=== PATIENT | female | born 1960 | race Caucasian/White ===

== ENCOUNTER 2020-11-01 20:02 | Emergency (ER) | payer OTHER, SELFPAY ==
[2020-11-01] MEDS ORDERED: MORPHINE 4 MG/ML SYR ONE (23:13)
[2020-11-01] MEDS ORDERED: ONDANSETRON 4 MG/2 ML VIAL ONE (23:13)
[2020-11-01 23:16] LABS: Hematocrit 39.8 % (36.0-45.0); Lymphocytes % 5.3 % (15.3-44.8); MPV 9.1 fL (7.6-11.3)
[2020-11-01 23:17] LABS: Absolute Lymphocytes (CBC) 0.4 K/uL (0.7-4.9); Basophils % 0.3 % (0-1.3)
[2020-11-01 23:34] LABS: Albumin 3.4 g/dL (3.4-5.0); Bilirubin Direct 0.3 mg/dL (0-0.2); Potassium 4.2 mmol/L (3.5-5.1); Protein, Total 7.4 g/dL (6.4-8.2)
[2020-11-01 23:46] LABS: Urine Blood 3+ (Negative); Urine Glucose 2+ (Negative); Urine Protein 2+ (Negative); Urine Specific Gravity >=1.030 (1.005-1.030); Urine pH 5.5 (5.0-7.0)
[2020-11-02 00:11] LABS: Urine Bacteria >50 /HPF (<20); Urine Mucus 2+ /HPF (NONE SEEN); Urine RBC TNTC /HPF (NONE SEEN)
[2020-11-02] MEDS ORDERED: TAMSULOSIN 0.4 MG SR CAP ONE (00:36)
[2020-11-02] MEDS ORDERED: MAGNESIUM SULFATE 1 gm IVPB 1 GM/100 ML BAG IV ONE (00:37)
--- NOTE | 2020-11-02 01:18 | ER ---
Nurse's Notes [facility] Name: Jemima Ramsey Age: 60 yrs Sex: Female : 1960 Arrival Date: 11/01/2020 Time: 20:23 Bed 3 Private MD: Diagnosis: Urinary tract infection, site not specified;Hydronephrosis with renal and ureteral calculous obstruction Presentation: 11/01 20:35 Chief complaint: Patient states: L flank pain, N/V/D, dysuria for 2 days. Toradol and ll1 tylenol #3 helped yesterday. Coronavirus screen: Client denies travel out of the [place] in the last 14 days. diarrhea, fever, nausea, vomiting. Client presents with at least one sign or symptom that may indicate coronavirus-19. Standard/surgical mask placed on the client. Ebola Screen: Patient denies travel to an Ebola-affected area in the 21 days before illness onset. Initial Sepsis Screen: Does the patient meet any 2 criteria? HR > 90 bpm. No. Patient's initial sepsis screen is negative. Does the patient have a suspected source of infection? Yes: Dysuria/Frequency/Urgency/UTI. Risk Assessment: Do you want to hurt yourself or someone else? Patient reports no desire to harm self or others. Onset of symptoms was October 30, 2020. 20:35 Method Of Arrival: Wheelchair ll1 20:35 Acuity: FEDER[place] 3 ll1 Historical: - Allergies: 20:39 No Known Allergies; ll1 - PMHx: 20:39 Kidney stones; Diabetes - NIDDM; High Cholesterol; ll1 - PSHx: 20:39 None; ll1 - Immunization history:: Flu vaccine is not up to date. - Social history:: Smoking status: Patient denies any tobacco usage or history of. - Family history:: not pertinent. - Hospitalizations: : No recent hospitalization is reported. Screenin:45 Abuse screen: Denies threats or abuse. Nutritional screening: No deficits noted. jb4 Tuberculosis screening: No symptoms or risk factors identified. Fall Risk None identified. Assessment: 22:45 General: Appears in no apparent distress. uncomfortable, Behavior is calm, cooperative, jb4 appropriate for age. Pain: Complains of pain in left low back Pain does not radiate. Pain currently is 3 out of 10 on a pain scale. Neuro: Level of Consciousness is awake, alert, obeys commands, Oriented to person, place, time, situation. Cardiovascular: Patient's skin is warm and dry. Respiratory: Airway is patent Respiratory effort is even, unlabored, Respiratory pattern is regular, symmetrical. GI: Abdomen is round non-distended. : Reports burning with urination, pain in right in lower back with urination. EENT: No signs and/or symptoms were reported regarding the EENT system. Derm: Skin is intact, Skin is pink, warm \\T\\ dry. Musculoskeletal: Circulation, motion, and sensation intact. Range of motion:. 11/02 00:00 Reassessment: Patient appears in no apparent distress at this time. Patient and/or jb4 family updated on plan of care and expected duration. Pain level reassessed. Patient is alert, oriented x 3, equal unlabored respirations, skin warm/dry/pink. Patient states feeling better. 01:00 Reassessment: Patient appears in no apparent distress at this time. Patient and/or jb4 family updated on plan of care and expected duration. Pain level reassessed. Patient is alert, oriented x 3, equal unlabored respirations, skin warm/dry/pink. 02:00 Reassessment: Patient appears in no apparent distress at this time. Patient and/or jb4 family updated on plan of care and expected duration. Pain level reassessed. Patient is alert, oriented x 3, equal unlabored respirations, skin warm/dry/pink. Patient states feeling better. 03:00 Reassessment: Patient appears in no apparent distress at this time. Patient and/or jb4 family updated on plan of care and expected duration. Pain level reassessed. Patient is alert, oriented x 3, equal unlabored respirations, skin warm/dry/pink. 03:30 Reassessment: report given to RAFAEL Anguiano of Room [facility] of [facility]. mg2 Vital Signs: 11/01 20:35 BP 142 / 66; Pulse 100; Resp 18; Temp 98.8; Pulse Ox 98% ; Weight 70.31 kg; Height 5 ll1 ft. 3 in. (160.02 cm); Pain 08/29; 11/02 00:15 BP 143 / 67; Pulse 90; Resp 16; Pulse Ox 98% on R/A; jb4 01:00 BP 146 / 66; Pulse 88; Resp 16; Pulse Ox 98% on R/A; jb4 02:00 BP 142 / 74; Pulse 98; Resp 18; Pulse Ox 98% on R/A; jb4 03:00 BP 126 / 69; Pulse 104; Resp 17; Pulse Ox 96% on R/A; jb4 04:00 BP 143 / 82; Pulse 80; Resp 18; Temp 98; Pulse Ox 100% on R/A; mg2 11/01 20:35 Body Mass Index 27.46 (70.31 kg, 160.02 cm) ll1 ED Course: 11/01 20:23 Patient arrived in ED. cf2 20:38 Triage completed. ll1 20:39 Arm band placed on. ll1 22:32 Tres Nicole MD is Attending Physician. rn 22:33 Jamison Martinez, RAFAEL is Primary Nurse. jb4 22:45 Patient has correct armband on for positive identification. Placed in gown. Bed in low jb4 position. Call light in reach. Side rails up X 1. Pulse ox on. NIBP on. 23:00 Initial lab(s) drawn, by me, sent to lab. Inserted saline lock: 18 gauge in right jb4 antecubital area, using aseptic technique. Blood collected. 11/02 01:16 initiated a transfer with Mary Beth Perez from [facility]. mw2 01:34 doc to doc with Dr. Bryan from [facility]. mw2 01:53 Mary Beth Perez called to check on the status of the patients' covid result. She stated "we [facility] can't give acceptance until we get the covid result". 02:[address] [facility] spoke to Mary Beth to update her on the patients' covid test.mw2 03:17 administrative approval given by Mary Beth Perez/ patient has been accepted to [address] bed 518/ Dr. Bryan has accepted the patient in transfer/ report to be called to [phone]. 03:30 No provider procedures requiring assistance completed. Patient transferred, IV remains jb4 in place. 10:12 CT Stone Protocol In Process Unspecified. EDMS Administered Medications: 11/01 23:06 Drug: Zofran (Ondansetron) 4 mg Route: IVP; Site: right antecubital; jb4 23:52 Follow up: Response: No adverse reaction mg2 11/02 00:15 Not Given (Patient Refused): morphine 4 mg IVP once; RASS on ADMIN: Combtv4, Very jb4 Agttd3, Agttd2, Rstlss1, AlertClm0, Drwsy-1, Lt Sdtn-2, Mod Sdtn-3, Dp Sdtn-4, UnArsble-5 00:27 Drug: Magnesium Sulfate 1 grams Route: IVPB; Infused Over: 1 hrs; Site: right jb4 antecubital; 01:27 Follow up: Response: No adverse reaction; IV Status: Completed infusion; IV Intake: jb4 100ml 00:27 Drug: Flomax 0.4 mg Route: PO; jb4 01:00 Follow up: Response: No adverse reaction jb4 01:23 Follow up: Response: No adverse reaction mg2 01:47 Drug: Phenergan 12.5 mg Route: IVP; Site: right antecubital; jb4 02:35 Follow up: Response: No adverse reaction mg2 01:50 Drug: Rocephin (cefTRIAXone) 1 grams Route: IV; Rate: calculated rate; Site: right jb4 antecubital; 01:53 Follow up: Response: No adverse reaction; IV Status: Completed infusion; IV Intake: 12hvpt5 02:36 Drug: Requip 0.25 mg Route: PO; mg2 03:29 Follow up: Response: No adverse reaction; Marked relief of symptoms jb4 04:02 Drug: Zofran (Ondansetron) 4 mg Route: IVP; Site: right antecubital; jb4 04:08 Follow up: Response: Medication administered at discharge. jb4 Intake: 01:27 IV: 100ml; Total: 100ml. jb4 01:53 IV: 10ml; Total: 110ml. jb4 Outcome: 01:17 ER care complete, transfer ordered by MD. zimmer 04:09 Transferred by ground EMS to other acute care facility: [facility]. Transfer mg2 form completed. 04:09 Condition: stable 04:09 Instructed on the need for transfer, Demonstrated understanding of instructions. 04:10 Patient left the ED. mg2 Addendum: 11/08/2020 01:05 Addendum: Culture Results: Positive urine culture. Bacteria is resistant to, has i w intermediate sensitivity, or is not tested against prescribed antibiotics. Report given to PRINCESS for further evaluation and then to project management professor for follow up with patient. Phone call Attempt #[address] [facility] , pt d/c. Signatures: Dispatcher [employer] Isabel Bruner, RN Tres Marrero MD MD rn Bryson, James, RN RN jb4 Reji Nazario 2 Yandel Lyons RN RN mg2 Frazier, Celesta 2 Omaira Monsalve RN RN ll1 Corrections: (The following items were deleted from the chart) 11/02 03:27 11/01 22:45 Pain: Complains of pain in right low back jb4 jb4
--- NOTE | 2020-11-02 01:18 | EDPHYS ---
Physician Documentation [facility] Name: Jemima Ramsey Age: 60 yrs Sex: Female : 1960 Arrival Date: 11/01/2020 Time: 20:23 Bed 3 Private MD: ED Physician Tres Nicole HPI: 11/01 23:27 This 60 yrs old Female presents to ER via Wheelchair with complaints of rn Nausea/Vomiting, Pain With Urination, Fever. 23:27 The patient complains of pain in the left mid back. The pain does not radiate. rn 23:27 Onset: The symptoms/episode began/occurred yesterday. Modifying factors: The symptoms rn are alleviated by nothing. the symptoms are aggravated by nothing. Associated signs and symptoms: Pertinent positives: fever, nausea, vomiting. Severity of pain: At its worst the pain was moderate in the emergency department the pain is unchanged. The patient has experienced similar episodes in the past. The patient has been recently seen by a physician:. Reports hx of kidney stones, seen 2 weeks ago with left sided stone at other ER, felt better, Returns today for left flank pain, dysuria, subjective fever, and nausea/vomiting. . Historical: - Allergies: 20:39 No Known Allergies; ll1 - PMHx: 20:39 Kidney stones; Diabetes - NIDDM; High Cholesterol; ll1 - PSHx: 20:39 None; ll1 - Immunization history:: Flu vaccine is not up to date. - Social history:: Smoking status: Patient denies any tobacco usage or history of. - Family history:: not pertinent. - Hospitalizations: : No recent hospitalization is reported. ROS: 23:27 Constitutional: Negative for fever, chills, and weight loss, Eyes: Negative for injury, rn pain, redness, and discharge, Neck: Negative for injury, pain, and swelling, Cardiovascular: Negative for chest pain, palpitations, and edema, Respiratory: Negative for shortness of breath, cough, wheezing, and pleuritic chest pain, Abdomen/GI: Negative for abdominal pain, and constipation, Back: + left flank pain : + dysuria MS/Extremity: Negative for injury and deformity, Skin: Negative for injury, rash, and discoloration, Neuro: Negative for headache, weakness, numbness, tingling, and seizure. Exam: 23:27 Constitutional: This is a well developed, well nourished patient who is awake, alert, rn and in no acute distress. Head/Face: Normocephalic, atraumatic. Cardiovascular: Regular rate and rhythm. No pulse deficits. Respiratory: No increased work of breathing, no retractions or nasal flaring. Abdomen/GI: soft, non-tender Skin: Warm, dry MS/ Extremity: Pulses equal, no cyanosis. Neuro: Awake and alert, GCS 15 Vital Signs: 20:35 BP 142 / 66; Pulse 100; Resp 18; Temp 98.8; Pulse Ox 98% ; Weight 70.31 kg; Height 5 ll1 ft. 3 in. (160.02 cm); Pain 08/29; 11/02 00:15 BP 143 / 67; Pulse 90; Resp 16; Pulse Ox 98% on R/A; jb4 01:00 BP 146 / 66; Pulse 88; Resp 16; Pulse Ox 98% on R/A; jb4 02:00 BP 142 / 74; Pulse 98; Resp 18; Pulse Ox 98% on R/A; jb4 03:00 BP 126 / 69; Pulse 104; Resp 17; Pulse Ox 96% on R/A; jb4 04:00 BP 143 / 82; Pulse 80; Resp 18; Temp 98; Pulse Ox 100% on R/A; mg2 11/01 20:35 Body Mass Index 27.46 (70.31 kg, 160.02 cm) ll1 MDM: 11/01 22:33 Patient medically screened. rn 11/02 01:11 Differential diagnosis: nephrolithiasis, pyelonephritis, UTI. Data reviewed: vital rn signs, nurses notes, lab test result(s), radiologic studies, CT scan, and as a result, I will admit patient. Counseling: I had a detailed discussion with the patient and/or guardian regarding: the historical points, exam findings, and any diagnostic results supporting the discharge/admit diagnosis, lab results, radiology results, the need to transfer to another facility, [facility] does not immediately have the required specialist. Response to treatment: the patient's symptoms have mildly improved after treatment, and as a result, I will admit patient. Admission orders: after a detailed discussion of the patient's condition and case, the admit orders are written by me. ED course: Pt with obstructing ureterolithiasis, + perinephric stranding with UTI, likely has been trying to pass stone for 2 weeks since seen at other ER, no urology here, will have to transfer to other hospital for urology and IV abx. . 11/01 22:40 Order name: Basic Metabolic Panel rn 11/01 22:40 Order name: CBC with Diff rn 11/01 22:40 Order name: Hepatic Function rn 11/01 22:40 Order name: Lipase rn 11/01 22:40 Order name: Urine Microscopic Only rn 11/01 23:18 Order name: CBC with Automated Diff; Complete Time: 00:10 EDMS 11/01 23:34 Order name: Basic Metabolic Panel; Complete Time: 00:10 EDMS 11/01 23:34 Order name: Liver (Hepatic) Function; Complete Time: 00:10 EDMS 11/01 23:34 Order name: Lipase; Complete Time: 00:10 EDOK 11/01 23:46 Order name: Urine Dipstick-Ancillary; Complete Time: 00:06 EDOK 11/02 00:11 Order name: Urine Microscopic Only; Complete Time: 00:33 EDOK 11/02 01:11 Order name: Blood Culture Adult (2) 11/02 01:23 Order name: COVID-19 : Document "Date of Symptom Onset" if Symptomatic. 11/02 01:36 Order name: CORONAVIRUS EDOK 11/01 22:40 Order name: IV Saline Lock; Complete Time: 23:07 11/01 22:40 Order name: Labs collected and sent; Complete Time: 23:07 11/01 22:40 Order name: Urine Dipstick-Ancillary (obtain specimen); Complete Time: 00:33 11/01 22:40 Order name: CT Stone Protocol 11/02 02:16 Order name: SARS-COV-2 RT PCR EDMS Administered Medications: 11/01 23:06 Drug: Zofran (Ondansetron) 4 mg Route: IVP; Site: right antecubital; jb4 23:52 Follow up: Response: No adverse reaction [facility] [place]/02 00:15 Not Given (Patient Refused): morphine 4 mg IVP once; RASS on ADMIN: Combtv4, Very jb4 Agttd3, Agttd2, Rstlss1, AlertClm0, Drwsy-1, Lt Sdtn-2, Mod Sdtn-3, Dp Sdtn-4, UnArsble-5 00:27 Drug: Magnesium Sulfate 1 grams Route: IVPB; Infused Over: 1 hrs; Site: right jb4 antecubital; 01:27 Follow up: Response: No adverse reaction; IV Status: Completed infusion; IV Intake: jb4 100ml 00:27 Drug: Flomax 0.4 mg Route: PO; jb4 01:00 Follow up: Response: No adverse reaction jb4 01:23 Follow up: Response: No adverse reaction mg2 01:47 Drug: Phenergan 12.5 mg Route: IVP; Site: right antecubital; jb4 02:35 Follow up: Response: No adverse reaction mg2 01:50 Drug: Rocephin (cefTRIAXone) 1 grams Route: IV; Rate: calculated rate; Site: right jb4 antecubital; 01:53 Follow up: Response: No adverse reaction; IV Status: Completed infusion; IV Intake: [id number] 02:36 Drug: Requip 0.25 mg Route: PO; mg2 03:29 Follow up: Response: No adverse reaction; Marked relief of symptoms jb4 04:02 Drug: Zofran (Ondansetron) 4 mg Route: IVP; Site: right antecubital; jb4 04:08 Follow up: Response: Medication administered at discharge. jb4 Disposition: 11/02/20 01:17 Transfer ordered to [facility]. Diagnosis are Urinary tract infection, site not specified, Hydronephrosis with renal and ureteral calculous obstruction. - Reason for transfer: Higher level of care. - Accepting physician is . - Condition is Stable. - Problem is new. - Symptoms have improved. Signatures: Dispatcher [employer] EDMS Tres Nicole MD MD rn Attema, Lee, LOW VOLTAGE ELECTRICIAN-C LOW VOLTAGE ELECTRICIAN-Cla1 Jamison Martinez RN RN jb4 Yandel Lyons RN RN mg2 Omaira Monsalve RN RN ll1 Corrections: (The following items were deleted from the chart) 04:10 01:17 11/02/2020 01:17 Transfer ordered to [facility]. mg2 Diagnosis is Urinary tract infection, site not specified; Hydronephrosis with renal and ureteral calculous obstruction. Reason for transfer: Higher level of care. Accepting physician is . Condition is Stable. Problem is new. Symptoms have improved. rn
[2020-11-02] MEDS ORDERED: CEFTRIAXONE/SWI 1gm 1 GM/10 ML SYR ONE (01:36)
[2020-11-02] MEDS ORDERED: PROMETHAZINE INJ 25 MG/ML AMP ONE (01:58)
[2020-11-02] MEDS ORDERED: ROPINIROLE HCL 0.25 MG TAB ONE (02:44)
[2020-11-02] MEDS ORDERED: ONDANSETRON 4 MG/2 ML VIAL ONE (04:23)
[2020-11-02 04:26] VITALS: BP 143/82; TEMP 98; O2SAT 100
--- NOTE | 2020-11-02 11:14 | RAD REPORT ---
EXAM DESCRIPTION: CT Abdomen and Pelvis COMPARISON: CT abdomen and pelvis February 28, 2020 CLINICAL HISTORY: [facility] MA[facility] left flank pain, hx of stones TECHNIQUE: CT of the abdomen and pelvis was acquired without IV contrast material. Coronal and sagit jared reconstructions were obtained. Automated exposure control was utilized on this examination as a dose lowering technique. FINDINGS: Lung bases: Trace left pleural effusion. *Evaluation of solid organs is limited due to lack of IV contrast. Liver: Normal. Gallbladder and biliary: Normal gallbladder. Unremarkable biliary tree. Pancreas: Normal. Spleen: Normal. Adrenal glands: Normal adrenal glands. Kidneys: Severe left hydronephrosis with obstructing 5 mm calculus in the proximal left ureter. Perin ephric stranding is present. Additional bilateral nonobstructing calculi are present. These measure u p to 6 mm the left and 6 mm on the right. Stomach and Small Bowel: Moderate-sized hiatal hernia. Urinary bladder: Normal. Uterus and Adnexa: Normal. Colon and Appendix: The colon is unremarkable. No evidence of appendicitis. Retroperitoneum and lymph nodes: Normal. Vascular: Mild atherosclerosis. Peritoneal cavity: No ascites or free air. Musculoskeletal and soft tissues: Small fat-containing left inguinal hernia. Small fat-containing per iumbilical hernia. No aggressive bone lesions. No compression fracture. IMPRESSION: 1. Obstructing 5 mm calculus in the proximal left ureter resulting in severe left hydron ephrosis. 2. Additional nonobstructive bilateral nephrolithiasis. 3. Moderate sized hiatal hernia. Electronically signed by: Miguel Rios MD 11/02/2020 12:09 AM CDT Due to temporary technical issues with the PACS/Fluency reporting system, reports are being signed by the in house radiologist without review as a courtesy to ensure prompt reporting. The interpreting r adiologist is fully responsible for the content of the report.
== END 2020-11-02 04:10 | disposition short-term general hospital (02) ==
LOC: ER 20:02
DX: N13.2 Hydronephrosis with renal and ureteral calculous obstruction (principal); N39.0 Urinary tract infection, site not specified; Z20.822 Contact with and (suspected) exposure to COVID-19; E11.9 Type 2 diabetes mellitus without complications; Z87.442 Personal history of urinary calculi
CPT/HCPCS: 96365; 87040 ×2; 87088; 85025; 87086; 80048; 36415; 80076; 87077; 87186; 83690; 76377; 74176; 96375; 99285; U0003; J2550; J3475; J0696; J2405 ×2; 81003; 81015